=== PATIENT | female | born 1945 | race Caucasian/White ===

== ENCOUNTER → 2023-08-26 16:20 | Outpatient (REF) | payer BC, SELFPAY | LOC: HWRAD 16:20 | PROVIDERS: ATTENDING PHYSICIAN Internal Medicine | DX: R06.02 Shortness of breath (principal) | CPT/HCPCS: 71046 ==

== ENCOUNTER → 2023-10-27 16:11 | Outpatient (REF) | payer BC, SELFPAY | LOC: HWWDC 16:11 | PROVIDERS: ATTENDING PHYSICIAN Internal Medicine | DX: Z12.39 Encounter for other screening for malignant neoplasm of breast (principal) | CPT/HCPCS: 77063; 77067 ==

== ENCOUNTER → 2023-12-14 14:39 | Outpatient (REF) | payer BC, SELFPAY | LOC: HWRAD 14:39 | PROVIDERS: ATTENDING PHYSICIAN Internal Medicine | DX: R79.89 Other specified abnormal findings of blood chemistry (principal) | CPT/HCPCS: 76770 ==

== ENCOUNTER → 2024-11-10 08:03 | Outpatient (REF) | payer BC, SELFPAY | LOC: RCS 08:03 | PROVIDERS: ATTENDING PHYSICIAN Internal Medicine | DX: R01.1 Cardiac murmur, unspecified (principal) | CPT/HCPCS: 93306 ==

== ENCOUNTER → 2024-12-06 12:40 | Outpatient (REF) | payer BC, SELFPAY | LOC: WDC 12:40 | PROVIDERS: ATTENDING PHYSICIAN Internal Medicine | DX: E78.2 Mixed hyperlipidemia (principal); Z86.0100 Personal history of colon polyps, unspecified; I10 Essential (primary) hypertension; R06.09 Other forms of dyspnea; Z12.31 Encounter for screening mammogram for malignant neoplasm of breast | CPT/HCPCS: 71046; 77063; 77067; 77080 ==

== ENCOUNTER → 2025-01-25 10:56 | Outpatient (REF) | payer BC, SELFPAY | LOC: HWRCS 10:56 | PROVIDERS: ATTENDING PHYSICIAN Internal Medicine Cardiovascular Disease; FAMILY PHYSICIAN Internal Medicine | DX: R06.02 Shortness of breath (principal) | CPT/HCPCS: 78452; 93017; A9500 ==

== ENCOUNTER 2025-02-05 06:25 | Day surgery (SDC) | payer BC, SELFPAY ==
[2025-02-05] VITALS (10 sets, daily range): BP systolic 119–175; BP diastolic 50–102; BMI 27.2
--- NOTE | 2025-02-05 12:51 | ITS.CL.CATH ---
[employer] - Catheterization
Cardiac Catheterization
Procedure Report:
LEFT HEART CATHETERIZATION
Date of Procedure: February 05, 2025
Referring: Dr. Diego Mcdermott
PROCEDURES:
1. Left heart catheterization with coronary and single-plane left ventriculography
INDICATION: 79-year-old female with recurring chest pain. Multiple catheterizations over the past have been normal. She developed chest pain different than she had is experienced in the past. A stress study was normal but symptoms persisted and
she is now referred for coronary angiography
ACCESS: Right radial artery, 6 [place] sheath
HEMODYNAMICS : (mmHg)
AO (s/d) : 159/61, 105
LV (s/d) : 168/16
LVEDP : 24
CORONARY FINDINGS
DOMINANCE: Left
LEFT MAIN: Short and unobstructed
LEFT ANTERIOR DESCENDING: The LAD arises normally from the left main and runs in the anterior interventricular groove. The LAD has minor irregularities over its course and tapers to a small caliber vessel as it approaches the apex
RAMUS: Normal
CIRCUMFLEX: The circumflex is a large-caliber dominant vessel that has minor irregularities over its course but no focal obstructive stenosis
RIGHT CORONARY ARTERY: Small nondominant
VENTRICULOGRAPHY: Left ventriculography is performed in an GOMEZ projection. The digital single-plane left ventricular ejection fraction is estimated at 60%
SEDATION: 41 minutes of procedural sedation was utilized. An independent medical policy specialist was present to assist with and help manage the patient's level of consciousness and physiologic status.
RADIATION SUMMARY: Fluoro Time (min): 4.3, Dose (mGy): 270, DAP (Gy.cm2) : 20.9
Closure Device: TR band
CONCLUSIONS
1. Nonobstructive coronary disease
2. Preserved LV systolic function
RECOMMENDATIONS
1. Continued medical therapy
Copy to: Dr. Diego Mcdermott
== END 2025-02-05 12:20 | disposition home or self-care (01) ==
LOC: CATH 06:25
PROVIDERS: ATTENDING PHYSICIAN Internal Medicine Interventional Cardiology; FAMILY PHYSICIAN Internal Medicine
DX: I25.10 Atherosclerotic heart disease of native coronary artery without angina pectoris (principal); E78.5 Hyperlipidemia, unspecified; I12.9 Hypertensive chronic kidney disease with stage 1 through stage 4 chronic kidney disease, or unspecified chronic kidney disease; G40.909 Epilepsy, unspecified, not intractable, without status epilepticus; M10.9 Gout, unspecified; Z87.891 Personal history of nicotine dependence; M81.0 Age-related osteoporosis without current pathological fracture; Z79.899 Other long term (current) drug therapy; Z88.8 Allergy status to other drugs, medicaments and biological substances; N18.30 Chronic kidney disease, stage 3 unspecified
CPT/HCPCS: 99152; 99153; 93458; C1769; C1894; Q9967